=== PATIENT | female | born 1950 | race Caucasian/White ===

== ENCOUNTER 2019-11-19 | Day surgery (SDC) | payer MEDICARE, OTHER ==
[~2019-11-19] MED LIST: ALENDRONATE10 MG PO; ASPIRIN81 MG PO; ATENOLOL100 M1 PO; ATENOLOL25 MG PO; GLIMEPIRIDE2 MG PO; LIPITOR10 M1 PO; LOSARTAN POTASS25 MG PO; METFORMIN500 MG PO; NORVASC5 M1 PO; TRAMADOL HCL50 MG PO; VITAMIN D PO
--- NOTE | 2019-12-01 12:58 | NUR ---
PER DR ARAUJO THE PATHOLOGY WAS ALL NEGATIVE. I ADVISED THE PATIENT THE SAME AND TO REPEAT COLONOSCOPY IN FIVE YEARS. SHE UNDERSTOOD. I SENT COPY OF NOTE TO DR JIN.
== END 2019-11-19 10:19 | disposition home or self-care (01) ==
PROC: 0DBH8ZX Excision of Cecum, Via Natural or Artificial Opening Endoscopic, Diagnostic (ICD-10-PCS; principal; 2019-11-19)
PROC: 0DB48ZX Excision of Esophagogastric Junction, Via Natural or Artificial Opening Endoscopic, Diagnostic (ICD-10-PCS; 2019-11-19)
DX: Z12.11 Encounter for screening for malignant neoplasm of colon (principal); K63.5 Polyp of colon; Q43.8 Other specified congenital malformations of intestine; K21.9 Gastro-esophageal reflux disease without esophagitis; K29.70 Gastritis, unspecified, without bleeding; K44.9 Diaphragmatic hernia without obstruction or gangrene; K64.8 Other hemorrhoids; I10 Essential (primary) hypertension; E11.9 Type 2 diabetes mellitus without complications; Z86.010 Personal history of colon polyps; Z95.5 Presence of coronary angioplasty implant and graft; Z79.02 Long term (current) use of antithrombotics/antiplatelets; Z79.84 Long term (current) use of oral hypoglycemic drugs